=== PATIENT | female | born 1960 | race African-American/Black ===

== ENCOUNTER 2022-03-30 11:08 | Emergency (ER) | payer MEDICARE, OTHER ==
[2022-03-30 12:11] LABS: Bilirubin Small (Negative); Blood, Urine Large (Negative); Clarity Cloudy (Clear); Glucose, Urine (Dipstick) Negative (Negative); Ketone, Urine 15 mg/dL (Negative); Leukocyte Small (Negative); Nitrite Positive (Negative); Protein, Urine (Dipstick) > or equal to 300 mg/dL (Neg-Trace)
[2022-03-30 12:12] LABS: Specific Gravity, Urine Greater/Equal 1.030 (1.005-1.030)
[2022-03-30 12:27] LABS: Bacteria/HPF 4+ HPF (None Seen); RBC/HPF 21-50 HPF (0-3); Squamous Epithelial 0-3 HPF (0-3); WBC/HPF 21-50 HPF (0-3)
[2022-03-30] MEDS ORDERED: Acetaminophen 500 MG TAB ONE (12:53)
[2022-03-30] MEDS ORDERED: Ketorolac Tromethamine 30 MG/ML VIAL ONE (12:53)
== END 2022-03-30 13:05 | disposition home or self-care (01) ==
LOC: CSHERS 11:08
DX: N30.01 Acute cystitis with hematuria (principal); I10 Essential (primary) hypertension
CPT/HCPCS: 81003; 81015; 87077; 87086; 87186; 96372; 99283; J1885